=== PATIENT | male | born 1985 | race American Indian/Alaskan Native ===

== ENCOUNTER 2016-06-16 16:45 | Emergency (ER) | payer OTHER ==
[2016-06-16 18:18] VITALS: BP 145/92
== END 2016-06-16 22:40 | disposition left against medical advice (07) ==
LOC: ED 16:45
DX: R51 Headache (principal); M54.2 Cervicalgia; R07.9 Chest pain, unspecified; M25.511 Pain in right shoulder; M25.512 Pain in left shoulder; Z53.21 Procedure and treatment not carried out due to patient leaving prior to being seen by health care provider